=== PATIENT | male | born 1965 | race Caucasian/White ===

== ENCOUNTER 2017-09-03 17:49 | Emergency (ER) | payer BC ==
[2017-09-03] MEDS ORDERED: Lidocaine 1% 20 ML MDV INJECT ONE (19:04)
[2017-09-03] MEDS ORDERED: Bacitracin Oint 1 GM U/D Packet TOP ONE (19:04)
--- NOTE | 2017-09-03 19:06 | EDM.PDOC ---
ED HPI GENERAL MEDICAL PROBLEM - General Chief Complaint: Laceration Stated Complaint: LACERATION LT THUMB/HAND Time Seen by Provider: 09/03/17 19:05 Source of Information: Reports: Patient History Limitations: Reports: No Limitations - History of Present Illness INITIAL COMMENTS - FREE TEXT/NARRATIVE: HISTORY AND PHYSICAL: []51-year-old presenting with laceration to his right thumb History of Present Illness: []Just before presenting to the emergency department patient in changing the blade on his chainsaw and the bar fell hitting him on the lateral portion of his right thumb states that it was quite dirty when he first presented in the house Review of Systems: As per history of present illness and below otherwise all systems reviewed and negative. Past medical history: As per history of present illness and as reviewed below otherwise noncontributory. Surgical history: As per history of present illness and as reviewed below otherwise noncontributory. Social history: No reported history of drug or alcohol abuse. Family history: As per history of present illness and as reviewed below otherwise noncontributory. Physical exam: Alert and oriented male answering questions appropriately in full sentences without any shortness of breath HEENT: Atraumatic, normocehpalic, pupils reactive, negative for conjunctival pallor or scleral icterus, mucous membranes moist, throat clear, neck supple, nontender, trachea midline. Lungs: Clear to auscultation, breath sounds equal bilaterally, chest non tender. Heart: S1S2, regular, negative for clicks, rubs, or JVD. Abdomen: Soft, nondistended, nontender. Negative for masses or hepatossplenmegaly. Negative for costovertebral tenderness. Pelvis: Stable nontender. Genitourinary: Deferred. Rectal: Deferred Extremities: 3 cm laceration to lateral right thumb .traumatic, negative for cords or calf pain. Neurovascular unremarkable. Neuro: Awake, alert, oriented. Cranial nerves II through XII unremarkable. Cerebellum unremarkable. Motor and sensory unremarkable throughout. Exam nonfocal. Diagnostics: [] Therapeutics: []Sutures Impression: [] Laceration with repair Plan: []Discharged to home Sutures out in 10 days Definitive disposition and diagnosis as appropriate pending reevaluation and review of above. Onset: Today, Sudden Duration: Hour(s): Location: Reports: Upper Extremity, Right Severity: Mild Improves with: Reports: None Worsens with: Reports: None Associated Symptoms: Reports: No Other Symptoms - Related Data Allergies Allergy/AdvReac Type Severity Reaction Status Date / Time codeine Allergy Itching Verified 09/03/17 19:07 Home Meds: Home Meds Amoxicillin/Potassium Clav [Augmentin 875-125 Tablet] 1 each PO BID #20 tablet 09/03/17 [Rx] Aspirin [Halfprin] 81 mg PO DAILY 09/03/17 [History] Lisinopril 10 mg PO DAILY 09/03/17 [History] Sertraline HCl 50 mg PO DAILY 09/03/17 [History] Ustekinumab [Stelara] 90 mg INJECT ASDIRECTED 09/03/17 [History] ED ROS GENERAL - Review of Systems Review Of Systems: ROS reveals no pertinent complaints other than HPI. ED EXAM, SKIN/RASH Exam: See Below (see dictation) ED SKIN PROCEDURES - Laceration/Wound Repair Right Lateral Finger Lac/Wound length In cm: 3 Appearance: Subcutaneous, Moderately Contaminated Distal NVT: Neuro & Vascular Intact, No Tendon Injury Anesthetic Type: Digital Local Anesthesia - Lidocaine (Xylocaine): 1% Plain Local Anesthetic Volume: 5cc Skin Prep: Saline Exploration/Debridement/Repair: Wound Explored, Explored to Base, No Foreign Material Found Closed with: Sutures Suture Size: 4-0 # of Sutures: 5 Suture Type: Nylon, Interrupted, Simple Drain Placement: No Sterile Dressing Applied: Nurse Tetanus Status Addressed: Yes Complications: No Course - Vital Signs Last Recorded V/S: Last Vital Signs Temp 36.3 C 09/03/17 19:04 Pulse 88 09/03/17 19:04 Resp 12 09/03/17 19:04 BP 145/102 H 09/03/17 19:04 Pulse Ox 94 L 09/03/17 19:04 - Orders/Labs/Meds Orders: Active Orders 24 hr Category Date Time Status Vaccines to be Administered [RC] PER UNIT ROUTINE Care 09/03/17 19:25 Active Meds: Medications Discontinued Medications Generic Name Dose Route Start Last Admin Trade Name Freq PRN Reason Stop Dose Admin Bacitracin 1 dose 09/03/17 19:04 Bacitracin Oint 1 Gm TOP 09/03/17 19:05 ONETIME ONE Diphtheria/Tetanus/Acell Pertussis 0.5 ml 09/03/17 19:25 Adacel IM 09/03/17 19:26 .ONCE ONE Lidocaine HCl 20 ml 09/03/17 19:04 Xylocaine 1% INJECT 09/03/17 19:05 ONETIME ONE Departure - Departure Time of Disposition: 19:32 Disposition: Home, Self-Care 01 Condition: Good Clinical Impression: Laceration - Discharge Information Prescriptions: Amoxicillin/Potassium Clav [Augmentin 065125 Tablet] 1 each PO BID #20 tablet Instructions: Laceration Care, Adult, [id number], Stitches, [place], or Adhesive Wound Closure, [id number] Referrals: PCP,None [Primary Care Provider] - Forms: ED Department Discharge Additional Instructions: The following information is given to patients seen in the emergency department who are being discharged to home. This information is to outline your options for follow-up care. We provide all patients seen in our emergency department with a follow-up referral. The need for follow-up, as well as the timing and circumstances, are variable depending upon the specifics of your emergency department visit. If you don't have a primary care physician on staff, we will provide you with a referral. We always advise you to contact your personal physician following an emergency department visit to inform them of the circumstance of the visit and for follow-up with them and/or the need for any referrals to a consulting specialist. The emergency department will also refer you to a specialist when appropriate. This referral assures that you have the opportunity for followup care with a specialist. All of these measure are taken in an effort to provide you with optimal care, which includes your followup. Under all circumstances we always encourage you to contact your private physician who remains a resource for coordinating your care. When calling for followup care, please make the office aware that this follow-up is from your recent emergency room visit. If for any reason you are refused follow-up, please contact the [facility] emergency department at and asked to speak to the emergency department charge nurse. Sutures out in 10 days Antibiotics have been sent to [facility] - My Orders Last 24 Hours: My Active Orders 09/03/17 19:25 Vaccines to be Administered [RC] PER UNIT ROUTINE - Assessment/Plan Last 24 Hours: My Active Orders 09/03/17 19:25 Vaccines to be Administered [RC] PER UNIT ROUTINE
[2017-09-03] MEDS ORDERED: Diphtheria,Pertussis(Acell),Tetanus Vaccine 0.5 ML Syringe IM ONE (19:25)
== END 2017-09-03 19:54 | disposition home or self-care (01) ==
LOC: MW.ED 17:49
DX: S61.011A Laceration without foreign body of right thumb without damage to nail, initial encounter (principal); W26.8XXA Contact with other sharp object(s), not elsewhere classified, initial encounter; Z23 Encounter for immunization; Z79.82 Long term (current) use of aspirin; Z79.899 Other long term (current) drug therapy; Z88.5 Allergy status to narcotic agent
CPT/HCPCS: 90471; 90715; 99283-25

== ENCOUNTER 2018-06-02 17:34 | Emergency (ER) | payer SELFPAY ==
--- NOTE | 2018-06-02 17:50 | EDM.PDOC ---
ED HPI GENERAL MEDICAL PROBLEM - General Chief Complaint: Head Injury Stated Complaint: SLIPPED ON ICE Time Seen by Provider: 06/02/18 17:45 Source of Information: Reports: Patient History Limitations: Reports: No Limitations - History of Present Illness INITIAL COMMENTS - FREE TEXT/NARRATIVE: History of present illness: []Patient was standing on 8 inch ledge at work outside when he lost his footing and fell backwards hitting his head on the ice approximately 4:30 this afternoon. He had a hard hat on but it fell off and he didn't lose consciousness. Review of systems: As per history of present illness and below otherwise all systems reviewed and negative. Past medical history: As per history of present illness and as reviewed below otherwise noncontributory. Surgical history: As per history of present illness and as reviewed below otherwise noncontributory. Social history: No reported history of drug or alcohol abuse. Family history: As per history of present illness and as reviewed below otherwise noncontributory. Physical exam: General: Well developed, well nourished in NAD HEENT: Atraumatic, normocephalic, pupils reactive, negative for conjunctival pallor or scleral icterus, mucous membranes moist, throat clear, neck supple, nontender, trachea midline. Lungs: Clear to auscultation, breath sounds equal bilaterally, chest nontender. Heart: S1S2, regular, negative for clicks, rubs, or JVD. Abdomen: NABS, Soft, nondistended, nontender. Negative for masses or hepatosplenomegaly. Negative for costovertebral tenderness. Pelvis: Stable nontender. Genitourinary: Deferred. Rectal: Deferred. Extremities: Atraumatic, negative for cords or calf pain. Neurovascular unremarkable. Neuro: Awake, alert, oriented. Cranial nerves II through XII unremarkable. Cerebellum unremarkable. Motor and sensory unremarkable throughout. Exam nonfocal. Skin:warm and dry Diagnostics: CT head-negative, CTcervical spine-negative. Therapeutics: tramadol, zofran ED Course: unremarkable Impression: Fall , head contusion, cervical strain Prescriptions: Patient declined any prescriptions Plan: follow up with your primary care physician, return to ER if symptoms worsen or change. Definitive disposition and diagnosis as appropriate pending reevaluation and review of above. head Pain Score (Numeric/FACES): 4 - Related Data Allergies Allergy/AdvReac Type Severity Reaction Status Date / Time codeine Allergy Itching Verified 09/03/17 19:07 Home Meds: Home Meds Amoxicillin/Potassium Clav [Augmentin 875-125 Tablet] 1 each PO BID #20 tablet 09/03/17 [Rx] Aspirin [Halfprin] 81 mg PO DAILY 09/03/17 [History] Lisinopril 10 mg PO DAILY 09/03/17 [History] Sertraline HCl 50 mg PO DAILY 09/03/17 [History] Ustekinumab [Stelara] 90 mg INJECT ASDIRECTED 09/03/17 [History] Past Medical History Cardiovascular History: Reports: Hypertension Dermatologic History: Reports: Other (See Below) Other Dermatologic History: psoriasis - Infectious Disease History Infectious Disease History: Reports: Chicken Pox Social & Family History - Caffeine Use Caffeine Use: Reports: Coffee ED ROS GENERAL - Review of Systems Review Of Systems: ROS reveals no pertinent complaints other than HPI. ED EXAM, HEAD INJURY - Physical Exam Exam: See Below (History of present illness) Course - Vital Signs Last Recorded V/S: Last Vital Signs Temp Pulse 76 06/02/18 17:40 Resp 18 06/02/18 17:40 BP 136/74 06/02/18 17:40 Pulse Ox 95 06/02/18 17:40 - Orders/Labs/Meds Meds: Medications Discontinued Medications Generic Name Dose Route Start Last Admin Trade Name Valentinoq PRN Reason Stop Dose Admin Ondansetron HCl 4 mg 06/02/18 19:04 Zofran Odt PO 06/02/18 19:05 ONETIME ONE Tramadol HCl 50 mg 06/02/18 19:04 Ultram PO 06/02/18 19:05 ONETIME ONE Departure - Departure Time of Disposition: 19:22 Disposition: Home, Self-Care 01 Condition: Good Clinical Impression: Fall Qualifiers: Encounter type: initial encounter Qualified Code(s): W19.XXXA - Unspecified fall, initial encounter Head contusion Qualifiers: Encounter type: initial encounter Contusion of head detail: unspecified part of head Qualified Code(s): S00.93XA - Contusion of unspecified part of head, initial encounter Cervical strain Qualifiers: Encounter type: initial encounter Qualified Code(s): S16.1XXA - Strain of muscle, fascia and tendon at neck level, initial encounter - Discharge Information *PRESCRIPTION DRUG MONITORING PROGRAM REVIEWED*: No *COPY OF PRESCRIPTION DRUG MONITORING REPORT IN PATIENT KATARINA: No Referrals: PCP,Unknown [Primary Care Provider] - Forms: ED Department Discharge Additional Instructions: The following information is given to patients seen in the emergency department who are being discharged to home. This information is to outline your options for follow-up care. We provide all patients seen in our emergency department with a follow-up referral. The need for follow-up, as well as the timing and circumstances, are variable depending upon the specifics of your emergency department visit. If you don't have a primary care physician on staff, we will provide you with a referral. We always advise you to contact your personal physician following an emergency department visit to inform them of the circumstance of the visit and for follow-up with them and/or the need for any referrals to a consulting specialist. The emergency department will also refer you to a specialist when appropriate. This referral assures that you have the opportunity for follow-up care with a specialist. All of these measure are taken in an effort to provide you with optimal care, which includes your follow-up. Under all circumstances we always encourage you to contact your private physician who remains a resource for coordinating your care. When calling for follow-up care, please make the office aware that this follow-up is from your recent emergency room visit. If for any reason you are refused follow-up, please contact the [facility] Emergency Department at and asked to speak to the emergency department charge nurse. [facility] [address] [place] [phone]
--- NOTE | 2018-06-02 18:57 | CT ---
INDICATION: Syncope TECHNIQUE: CT cervical spine without contrast. COMPARISON: None FINDINGS: Vertebrae: Alignment is normal. There are no fractures or suspicious bony lesions. Discs and facet joints: Posterior osteophytes at C4-5, greater on the right with moderate right and mild left foraminal stenosis. Facet hypertrophy with posterior osteophytes at C5-6 with moderate bilateral foraminal stenosis. Extraspinal findings: Prevertebral soft tissues, visualized airway, and visualized lungs are unremarkable. IMPRESSION: Mild degenerative disc disease without evidence of cervical spine fracture. Please note that all CT scans at this facility use dose modulation, iterative reconstruction, and/or weight-based dosing when appropriate to reduce radiation dose to as low as reasonably achievable. Dictated by Koko Chan MD @ Jun 02 2018 6:53PM Signed by Dr. Koko Chan @ Jun 02 2018 6:56PM
[2018-06-02] MEDS ORDERED: traMADol 50 MG Tab PO ONE (19:04)
[2018-06-02] MEDS ORDERED: Ondansetron 4 MG Tab.DIS PO ONE (19:04)
--- NOTE | 2018-06-02 19:12 | CT ---
INDICATION: Syncope TECHNIQUE: CT head without contrast. COMPARISON: None. FINDINGS: CSF spaces: Within normal limits for age. Brain parenchyma: The lowe-white differentiation is normal. No sign of mass, hemorrhage, or midline shift. Skull base and calvarium: The visualized paranasal sinuses and mastoid air cells demonstrate no acute or significant findings. The visualized orbits are grossly unremarkable. No skull fractures. IMPRESSION: Unremarkable noncontrast head CT. Please note that all CT scans at this facility use dose modulation, iterative reconstruction, and/or weight-based dosing when appropriate to reduce radiation dose to as low as reasonably achievable. Dictated by Koko Chan MD @ Jun 02 2018 7:06PM Signed by Dr. Koko Chan @ Jun 02 2018 7:11PM
== END 2018-06-02 19:27 | disposition home or self-care (01) ==
LOC: MW.ED 17:34
DX: S16.1XXA Strain of muscle, fascia and tendon at neck level, initial encounter (principal); S00.93XA Contusion of unspecified part of head, initial encounter; I10 Essential (primary) hypertension; Z88.5 Allergy status to narcotic agent; Z79.82 Long term (current) use of aspirin; Z79.899 Other long term (current) drug therapy; W17.89XA Other fall from one level to another, initial encounter; Y99.0 Civilian activity done for income or pay; F17.290 Nicotine dependence, other tobacco product, uncomplicated
CPT/HCPCS: 70450; 72125; 99284; A9270

== ENCOUNTER 2019-01-05 09:17 | Day surgery (SDC) | payer BC ==
[~2019-01-05 09:17] MED LIST: Lactated Ringers 1,000 ML IV SCH; Lidocaine 2% 5 ML SDV ONE; Propofol 200 MG/20 ML SDV ONE; Sodium Chloride 0.9% 10 ML SDV IV PRN; Sodium Chloride 0.9% 10 ML Syringe FLUSH PRN; Sodium Chloride 0.9% 2.5 ML Syringe FLUSH PRN; fentaNYL 100 MCG/2 ML SDV ONE
--- NOTE | 2019-01-05 10:20 | PCM.PREANE ---
Preanesthetic Assessment - Anesthesia/Transfusion/Family Hx Anesthesia History: Prior Anesthesia Without Reaction Family History of Anesthesia Reaction: No Transfusion History: No Prior Transfusion(s) - Review of Systems General: No Symptoms Pulmonary: No Symptoms Cardiovascular: No Symptoms Gastrointestinal: No Symptoms, Nausea Other: Reports: None - Physical Assessment Vital Signs: Last Vital Signs Temp 97.9 F 01/05/19 09:54 Pulse 70 01/05/19 09:54 Resp 16 01/05/19 09:54 BP 141/96 H 01/05/19 09:54 Pulse Ox 95 01/05/19 09:54 Height: 5 ft 11 in Weight: 119.295 kg ASA Class: 2 Mental Status: Alert & Oriented x3 Airway Class: Mallampati = 2 Dentition: Reports: Normal Dentition ROM/Head Extension: Full Lungs: Clear to Auscultation, Normal Respiratory Effort Cardiovascular: Regular Rate, Regular Rhythm - Allergies Allergies/Adverse Reactions: Allergies Allergy/AdvReac Type Severity Reaction Status Date / Time amoxicillin Allergy Hives Verified 01/02/19 09:20 codeine Allergy Itching Verified 01/02/19 09:20 - Blood Blood Available: No - Anesthesia Plan Pre-Op Medication Ordered: None - Acknowledgements Anesthesia Type Planned: General Anesthesia Pt an Appropriate Candidate for the Planned Anesthesia: Yes Alternatives and Risks of Anesthesia Discussed w Pt/Guardian: Yes Pt/Guardian Understands and Agrees with Anesthesia Plan: Yes Additional Comments: PMH: htn, sb- on cpcp PLAN: tiva PreAnesthesia Questionnaire HEENT History: Reports: Other (See Below) Other HEENT History: wears glasses Cardiovascular History: Reports: Hypertension Respiratory History: Reports: Sleep Apnea Other Respiratory History: uses CPAP Gastrointestinal History: Reports: GERD Genitourinary History: Reports: None Musculoskeletal History: Reports: Arthritis, Fracture, Gout Other Musculoskeletal History: hx fx hand and arm Neurological History: Reports: Concussion Psychiatric History: Reports: Anxiety, Depression Endocrine/Metabolic History: Reports: Obesity/BMI 30+ Hematologic History: Reports: None Immunologic History: Reports: None Oncologic (Cancer) History: Reports: None Dermatologic History: Reports: Psoriasis, Other (See Below) Other Dermatologic History: psoriasis - Infectious Disease History Infectious Disease History: Reports: Chicken Pox - Past Surgical History Head Surgeries/Procedures: Reports: None HEENT Surgical History: Reports: None Cardiovascular Surgical History: Reports: None Respiratory Surgical History: Reports: None GI Surgical History: Reports: Cholecystectomy Male Surgical History: Reports: None Endocrine Surgical History: Reports: None Neurological Surgical History: Reports: Lumbar Spine Other Neurological Surgeries/Procedures: hx back surgery Musculoskeletal Surgical History: Reports: Other (See Below) Other Musculoskeletal Surgeries/Procedures:: left hand surgery Oncologic Surgical History: Reports: None Dermatological Surgical History: Reports: None - SUBSTANCE USE Tobacco Use Within Last Twelve Months: Smokeless Tobacco Recreational Drug Use History: No - HOME MEDS Home Medications: Home Meds Aspirin [Halfprin] 81 mg PO DAILY 09/03/17 [History] Lisinopril 20 mg PO DAILY 09/03/17 [History] Sertraline HCl 50 mg PO DAILY 09/03/17 [History] Ustekinumab [Stelara] 90 mg INJECT ASDIRECTED 09/03/17 [History] Clobetasol [Clobetasol Propionate 0.05% Cream] 1 applic TOP ASDIRECTED PRN 01/02 [History] Fish Oil/[place]-3 Fatty Acids [Fish Oil 1,000 MG] 1,000 mg PO DAILY 01/02/19 [ History] Hydrocortisone [Hydrocortisone 2.5% Crm] 1 applic TOP ASDIRECTED PRN 01/02/19 [ History] hydroCHLOROthiazide [Hydrochlorothiazide] 25 mg PO DAILY 01/02/19 [History] Omeprazole Magnesium [Prilosec Otc] 20 mg PO DAILY 01/03/19 [History] - CURRENT (IN HOUSE) MEDS Current Meds: Current Medications Lactated Ringer's (Ringers, Lactated) 1,000 mls @ 125 mls/hr IV ASDIRECTED [facility] Last Admin: 01/05/19 10:02 Dose: 125 mls/hr Sodium Chloride (Saline Flush) 10 ml FLUSH ASDIRECTED PRN PRN Reason: Keep Vein Open Sodium Chloride (Saline Flush) 2.5 ml FLUSH ASDIRECTED PRN PRN Reason: Keep Vein Open Sodium Chloride (Saline Flush) 10 ml FLUSH ASDIRECTED PRN PRN Reason: Keep Vein Open Sodium Chloride (Saline Flush) 2.5 ml FLUSH ASDIRECTED PRN PRN Reason: Keep Vein Open Sodium Chloride (Normal Saline) 10 ml IV ASDIRECTED PRN PRN Reason: IV Use Discontinued Medications Fentanyl (Sublimaze) Confirm Administered Dose 100 mcg .ROUTE .STK-MED ONE Stop: 01/05/19 08:36 Lidocaine (Xylocaine-Mpf 2%) Confirm Administered Dose 5 ml .ROUTE .STK-MED ONE Stop: 01/05/19 08:35 Propofol (Diprivan 20 Ml) Confirm Administered Dose 400 mg .ROUTE .STK-MED ONE Stop: 01/05/19 08:35
[2019-01-05] MEDS ORDERED: Propofol 200 MG/20 ML SDV ONE (11:22)
--- NOTE | 2019-01-05 12:08 | PCM.POSTAN ---
POST ANESTHESIA ASSESSMENT - MENTAL STATUS Mental Status: Alert, Oriented - VITAL SIGNS Vital Signs: Last Vital Signs Temp 97.9 F 01/05/19 09:54 Pulse 62 01/05/19 12:05 Resp 18 01/05/19 12:05 BP 135/88 01/05/19 12:05 Pulse Ox 94 L 01/05/19 12:05 - RESPIRATORY Respiratory Status: Respiratory Rate WNL, Airway Patent, O2 Saturation Stable - CARDIOVASCULAR CV Status: Pulse Rate WNL, Blood Pressure Stable - GASTROINTESTINAL GI Status: No Symptoms - POST OP HYDRATION Hydration Status: Adequate & Stable
--- NOTE | 2019-01-05 12:09 | PCM48HPAN ---
Post Anesthesia Note - EVALUATION WITHIN 48HRS OF ANESTHETIC Vital Signs in Normal Range: Yes Patient Participated in Evaluation: Yes Respiratory Function Stable: Yes Airway Patent: Yes Cardiovascular Function Stable: Yes Hydration Status Stable: Yes Pain Control Satisfactory: Yes Nausea and Vomiting Control Satisfactory: Yes Mental Status Recovered: Yes Vital Signs: Last Vital Signs Temp 97.9 F 01/05/19 09:54 Pulse 62 01/05/19 12:05 Resp 18 01/05/19 12:05 BP 135/88 01/05/19 12:05 Pulse Ox 94 L 01/05/19 12:05
--- NOTE | 2019-01-05 12:31 | PCM.OPNOTE ---
- General Post-Op/Procedure Note Date of Surgery/Procedure: 01/05/19 Operative Procedure(s): Screening colonoscopy Findings: hepatic flexure, descending, sigmoid colon polyp Pre Op Diagnosis: Screening colonoscopy Post-Op Diagnosis: Hepatic flexure, descending, sigmoid colon polyp [place]est[place] [facility] [place]geon: Caryl Figueroa Condition: Good Free Text/Narrative:: Intake & Output 01/04/19 01/05/19 01/05/19 22:59 06:59 14:59 Intake Total 550 Balance 550
--- NOTE | 2019-01-05 14:28 | OR ---
SURGEON: CARYL FIGUEROA MD DATE OF PROCEDURE: 01/05/2019 PREOPERATIVE DIAGNOSIS: Screening colonoscopy. POSTOPERATIVE DIAGNOSES: 1. Hepatic flexure polyp. 2. Descending colon polyp. 3. Sigmoid colon polyp. PROCEDURE PERFORMED: Screening colonoscopy. PRIMARY SURGEON: Caryl Figueroa MD. ANESTHESIA: MAC. INSTRUMENT USED: Olympus colonoscope. EXTENT OF EXAM: To the cecum. PREPARATION: Good. LIMITATIONS: None. INDICATION FOR EXAMINATION: The patient is a 53-year-old male who presents for screening colonoscopy. I explained the procedure; expected perioperative course; and risks including bleeding, infection, or damage to surrounding structures including perforation. The patient verbalized understanding and wishes to proceed. PROCEDURE IN DETAIL: The patient was brought into the endoscopy suite and placed in a left lateral decubitus position. A time-out was completed verifying the patient's name, age, date of , allergies, and procedure to be performed. Monitored anesthesia care was induced and continuous oxygen was provided via nasal cannula throughout the procedure. After adequate sedation was achieved, a digital rectal exam was performed. This exam was within normal limits. A well-lubricated colonoscope was inserted in the rectum and advanced under direct visualization to the level of the cecum. The cecum was identified by both visual and anatomic landmarks. A photograph was taken of the cecal cap as well as with the scope retroflexed within the cecum. The scope was then straightened out and fully withdrawn while examining the color, texture, anatomy, and integrity of the mucosa from the cecum to the anal canal. The patient was found to have a sessile polyp at the hepatic flexure. I attempted to remove this using a looped snare, however, given its location, I was unable to do so. It was removed in piecemeal fashion using cold biopsy forceps. It was sent to pathology, labeled as hepatic flexure polyp. The patient had 2 other sessile polyps, one in the descending colon and one in the sigmoid colon. These were both removed using cold biopsy forceps. The scope was then brought into the rectum and retroflexed to allow visualization of the anal canal opening. This appeared normal and a photograph was taken. Scope was then straightened out and fully withdrawn. Cecum to anus time was 30 minutes. The patient tolerated the procedure well and was transferred to the PACU in stable condition. ENDOSCOPIC DIAGNOSES: 1. Hepatic flexure polyp. 2. Descending colon polyp. 3. Sigmoid colon polyp. RECOMMENDATIONS: Follow up in clinic in 2 weeks. LEATHA LOPES /[id number]
== END 2019-01-05 12:28 | disposition home or self-care (01) ==
LOC: MW.SDS 09:17
PROVIDERS: ATTEND Surgery
DX: Z12.11 Encounter for screening for malignant neoplasm of colon (principal); D12.5 Benign neoplasm of sigmoid colon; K63.5 Polyp of colon; K21.9 Gastro-esophageal reflux disease without esophagitis; I10 Essential (primary) hypertension; E66.9 Obesity, unspecified; F41.9 Anxiety disorder, unspecified; F17.220 Nicotine dependence, chewing tobacco, uncomplicated; G47.33 Obstructive sleep apnea (adult) (pediatric); M19.90 Unspecified osteoarthritis, unspecified site; M10.9 Gout, unspecified; Z88.0 Allergy status to penicillin; Z88.5 Allergy status to narcotic agent; Z68.36 Body mass index [BMI] 36.0-36.9, adult; Z99.89 Dependence on other enabling machines and devices; Z79.82 Long term (current) use of aspirin; Z79.899 Other long term (current) drug therapy
CPT/HCPCS: 45380; J2001; J2704; J3010; J7120

== ENCOUNTER 2019-03-18 13:32 | Emergency (ER) | payer BC ==
[2019-03-18] MEDS ORDERED: Sodium Chloride 0.9% 1,000 ML IV ONE (13:33)
[2019-03-18] MEDS ORDERED: Ondansetron 4 MG/2 ML SDV IVPUSH ONE (13:33)
[2019-03-18] MEDS ORDERED: Morphine 4 MG/ML Syringe IVPUSH ONE ×2 (13:52→15:42)
--- NOTE | 2019-03-18 13:56 | EDM.PDOC ---
ED HPI GENERAL MEDICAL PROBLEM - General Chief Complaint: Trauma Stated Complaint: FELL Time Seen by Provider: 03/18/19 13:35 Source of Information: Reports: Patient History Limitations: Reports: No Limitations - History of Present Illness INITIAL COMMENTS - FREE TEXT/NARRATIVE: HISTORY AND PHYSICAL: History of present illness: Patient is a 53-year-old male who presents to the emergency room today with complaints of pain after falling. Patient states he was walking down his porch steps when he slipped and fell backwards hitting his left back and elbow. He denies hitting his head or having any loss of consciousness. He is complaining of thoracic back, left flank, left abdominal and left elbow pain. Abrasion noted to left elbow. Patient was brought in by ambulance and had been placed on a backboard. Patient states he does take aspirin 81 mg a few times per week, has not had this medication in 24 hours. Trauma alert was called due to aspirin usage and fall. Review of systems: As per history of present illness and below otherwise all systems reviewed and negative. Past medical history: As per history of present illness and as reviewed below otherwise noncontributory. Surgical history: As per history of present illness and as reviewed below otherwise noncontributory. Social history: See social history for further information Family history: As per history of present illness and as reviewed below otherwise noncontributory. Physical exam: General: Well-developed and well-nourished 53-year-old male. Alert and oriented. Nontoxic appearing and in no acute distress. HEENT: Atraumatic, normocephalic, pupils equal and reactive bilaterally, negative for conjunctival pallor or scleral icterus, mucous membranes moist, TMs normal bilaterally, throat clear, neck supple, nontender, trachea midline. No drooling or trismus noted. No meningeal signs. No hot potato voice noted. Lungs: Clear to auscultation, breath sounds equal bilaterally, chest nontender. Heart: S1S2, regular rate and rhythm without overt murmur Abdomen: Soft, obese, generalized tenderness to the upper abdomen. Negative for masses. Negative for costovertebral tenderness. Pelvis: Stable nontender. C-spine/Back: No pinpoint vertebral tenderness upon palpation. No crepitus, step -offs or obvious deformities. Paraspinous muscular tenderness to the left thoracic region extending into left flank. Patient was ambulatory on scene. Able to lift his toes up towards his nose and pushed down with equal force bilaterally. Denies any urinary or fecal incontinence. Denies any numbness, tingling or saddle paresthesia. Skin: Abrasion noted to left elbow. Otherwise skin is intact, warm, dry. No lesions or rashes noted. Extremities: Moves all extremities per self without difficulty or deficits, full ROM of all major joints. Strong radial and pedal pulses bilaterally. He is negative for cords or calf pain. Neurovascular unremarkable. Neuro: Awake, alert, oriented. Cranial nerves II through XII unremarkable. Cerebellum unremarkable. Motor and sensory unremarkable throughout. Exam nonfocal. Notes: Lab work is unremarkable. Imaging is unremarkable with the exception of some soft tissue swelling noted at the left elbow. The abrasion to the left elbow was cleansed and bacitracin applied. All findings were shared with the patient and at bedside. Vital signs remained stable. Supportive care measures were reviewed and discussed. Voices understanding and is agreeable to plan of care. Denies any further questions or concerns at this time. Diagnostics: CBC, CMP, INR, UA, Thoracic CT, Abd/Pelvis CT Therapeutics: IV fluids, Zofran, Morphine Prescription: [place] (#20) Impression: Fall Thoracic Back Pain Abrasion Plan: 1. The medication you received today does cause drowsiness, so do not drive for the remaining day 2. When resting please lay on a flat firm surface. Limit your immobility to prevent muscle stiffness. Get up to ambulate/move around/gentle stretching multiple times throughout the day. May alternate heat and ice to the painful areas 3. Tylenol and/or Ibuprofen as needed for back pain. [place] as prescribed, this medication may cause drowsiness a do not take it will driving her needing to be functioning outside of the house. 4. Please follow-up with your primary care provider as we discussed. Return to the ED as needed and as discussed. Definitive disposition and diagnosis as appropriate pending reevaluation and review of above. left side Pain Score (Numeric/FACES): 9 - Related Data Allergies Allergy/AdvReac Type Severity Reaction Status Date / Time amoxicillin Allergy Hives Verified 01/02/19 09:20 codeine Allergy Itching Verified 01/02/19 09:20 Home Meds: Home Meds Aspirin [Halfprin] 81 mg PO DAILY 09/03/17 [History] Lisinopril 20 mg PO DAILY 09/03/17 [History] Sertraline HCl 50 mg PO DAILY 09/03/17 [History] Ustekinumab [Stelara] 90 mg INJECT ASDIRECTED 09/03/17 [History] Clobetasol [Clobetasol Propionate 0.05% Cream] 1 applic TOP ASDIRECTED PRN 01/02 [History] Fish Oil/[place]-3 Fatty Acids [Fish Oil 1,000 MG] 1,000 mg PO DAILY 01/02/19 [ History] Hydrocortisone [Hydrocortisone 2.5% Crm] 1 applic TOP ASDIRECTED PRN 01/02/19 [ History] hydroCHLOROthiazide [Hydrochlorothiazide] 25 mg PO DAILY 01/02/19 [History] Omeprazole Magnesium [Prilosec Otc] 20 mg PO DAILY 01/03/19 [History] Past Medical History HEENT History: Reports: Other (See Below) Other HEENT History: wears glasses Cardiovascular History: Reports: Hypertension Respiratory History: Reports: Sleep Apnea Other Respiratory History: uses CPAP Gastrointestinal History: Reports: GERD Genitourinary History: Reports: None Musculoskeletal History: Reports: Arthritis, Fracture, Gout Other Musculoskeletal History: hx fx hand and arm Neurological History: Reports: Concussion Psychiatric History: Reports: Anxiety, Depression Endocrine/Metabolic History: Reports: Obesity/BMI 30+ Hematologic History: Reports: None Immunologic History: Reports: None Oncologic (Cancer) History: Reports: None Dermatologic History: Reports: Psoriasis, Other (See Below) Other Dermatologic History: psoriasis - Infectious Disease History Infectious Disease History: Reports: Chicken Pox - Past Surgical History Head Surgeries/Procedures: Reports: None HEENT Surgical History: Reports: None Cardiovascular Surgical History: Reports: None Respiratory Surgical History: Reports: None GI Surgical History: Reports: Cholecystectomy Male Surgical History: Reports: None Endocrine Surgical History: Reports: None Neurological Surgical History: Reports: Lumbar Spine Other Neurological Surgeries/Procedures: hx back surgery Musculoskeletal Surgical History: Reports: Other (See Below) Other Musculoskeletal Surgeries/Procedures:: left hand surgery Oncologic Surgical History: Reports: None Dermatological Surgical History: Reports: None Social & Family History - Family History Family Medical History: Noncontributory - Caffeine Use Caffeine Use: Reports: Coffee Review of Systems - Review of Systems Review Of Systems: Comprehensive ROS is negative, except as noted in HPI. ED EXAM, GENERAL - Physical Exam Exam: See Below (See dictation) Course - Vital Signs Last Recorded V/S: Last Vital Signs Temp 97.1 F 03/18/19 13:32 Pulse 65 03/18/19 13:32 Resp 16 03/18/19 13:32 BP 143/97 H 03/18/19 13:32 Pulse Ox 94 L 03/18/19 13:32 - Orders/Labs/Meds Orders: Active Orders 24 hr Category Date Time Status Admission Status [Patient Status] [ADT] Stat ADT 03/18/19 14:13 Active UA RFX BRITTANY AND CULT IF INDIC [URIN] Stat Lab 03/18/19 13:34 Ordered Sodium Chloride 0.9% [Normal Saline] 1,000 ml Med 03/18/19 13:33 Active IV STAT Medication Orders Sodium Chloride (Normal Saline) 1,000 mls @ 125 mls/hr IV STAT ONE Stop: 03/18/19 21:32 Last Admin: 03/18/19 14:10 Dose: 125 mls/hr Labs: Laboratory Tests 03/18/19 03/18/19 03/18/19 Range/Units 14:04 14:04 14:04 WBC 9.88 (4.0-11.0) K/uL RBC 4.97 (4.50-5.90) M/uL Hgb 13.9 (13.0-17.0) g/dL Hct 41.3 (38.0-50.0) % MCV 83.1 (80.0-98.0) fL MCH 28.0 (27.0-32.0) pg MCHC 33.7 (31.0-37.0) g/dL RDW Std Deviation 41.8 (28.0-62.0) fl RDW Coeff of Chip 14 (11.0-15.0) % Plt Count 320 (150-400) K/uL MPV 9.40 (7.40-12.00) fL Neut % (Auto) 66.0 (48.0-80.0) % Lymph % (Auto) 25.2 (16.0-40.0) % Bullock % (Auto) 8.1 (0.0-15.0) % Eos % (Auto) 0.5 (0.0-7.0) % Baso % (Auto) 0.2 (0.0-1.5) % Neut # (Auto) 6.5 H (1.4-5.7) K/uL Lymph # (Auto) 2.5 H (0.6-2.4) K/uL Bullock # (Auto) 0.8 (0.0-0.8) K/uL Eos # (Auto) 0.1 (0.0-0.7) K/uL Baso # (Auto) 0.0 (0.0-0.1) K/uL Nucleated RBC % 0.0 /100WBC Nucleated RBCs # 0 K/uL INR 0.98 Sodium 142 (136-148) mmol/L Potassium 3.6 (3.5-5.1) mmol/L Chloride 107 (98-107) mmol/L Carbon Dioxide 23.3 (21.0-32.0) mmol/L BUN 20 H (7.0-18.0) mg/dL Creatinine 1.0 (0.8-1.3) mg/dL Est Cr Clr Drug Dosing 92.03 mL/min Estimated GFR (MDRD) > 60.0 ml/min Glucose 96 (74-106) mg/dL Calcium 8.6 (8.5-10.1) mg/dL Total Bilirubin 0.4 (0.2-1.0) mg/dL AST 18 (15-37) IU/L ALT 34 (14-63) IU/L Alkaline Phosphatase 59 (46-116) U/L Total Protein 7.2 (6.4-8.2) g/dL Albumin 3.6 (3.4-5.0) g/dL Globulin 3.6 (2.6-4.0) g/dL Albumin/Globulin Ratio 1.0 (0.9-1.6) Meds: Medications Generic Name Dose Route Start Last Admin Trade Name Freq PRN Reason Stop Dose Admin Sodium Chloride 1,000 mls @ 125 mls/hr 03/18/19 13:33 03/18/19 14:10 Normal Saline IV 03/18/19 21:32 125 mls/hr STAT ONE Administration Discontinued Medications Generic Name Dose Route Start Last Admin Trade Name Freq PRN Reason Stop Dose Admin Bacitracin 1 dose 03/18/19 15:42 Bacitracin Oint 1 Gm TOP 03/18/19 15:43 ONETIME ONE Morphine Sulfate 4 mg 03/18/19 13:52 03/18/19 14:11 Morphine IVPUSH 03/18/19 13:53 4 mg ONETIME ONE Administration Morphine Sulfate 4 mg 03/18/19 15:42 Morphine IVPUSH 03/18/19 15:43 ONETIME ONE Ondansetron HCl 4 mg 03/18/19 13:33 03/18/19 14:10 Zofran IVPUSH 03/18/19 13:34 4 mg ONETIME ONE Administration Departure - Departure Time of Disposition: 15:49 Disposition: Home, Self-Care 01 Clinical Impression: Abrasion Fall Qualifiers: Encounter type: initial encounter Qualified Code(s): W19.XXXA - Unspecified fall, initial encounter Acute thoracic back pain Qualifiers: Back pain laterality: bilateral Qualified Code(s): M54.6 - Pain in thoracic spine - Discharge Information Referrals: PCP,Unknown [Primary Care Provider] - Forms: ED Department Discharge Additional Instructions: The following information is given to patients seen in the emergency department who are being discharged to home. This information is to outline your options for follow-up care. We provide all patients seen in our emergency department with a follow-up referral. The need for follow-up, as well as the timing and circumstances, are variable depending upon the specifics of your emergency department visit. If you don't have a primary care physician on staff, we will provide you with a referral. We always advise you to contact your personal physician following an emergency department visit to inform them of the circumstance of the visit and for follow-up with them and/or the need for any referrals to a consulting specialist. The emergency department will also refer you to a specialist when appropriate. This referral assures that you have the opportunity for follow-up care with a specialist. All of these measure are taken in an effort to provide you with optimal care, which includes your follow-up. Under all circumstances we always encourage you to contact your private physician who remains a resource for coordinating your care. When calling for follow-up care, please make the office aware that this follow-up is from your recent emergency room visit. If for any reason you are refused follow-up, please contact the Emergency Department at and asked to speak to the emergency department charge nurse. [facility] [address] [place] [address] [facility] [address] [place] [address] 1. The medication you received today does cause drowsiness, so do not drive for the remaining day 2. When resting please lay on a flat firm surface. Limit your immobility to prevent muscle stiffness. Get up to ambulate/move around/gentle stretching multiple times throughout the day. May alternate heat and ice to the painful areas 3. Tylenol and/or Ibuprofen as needed for back pain. [place] as prescribed, this medication may cause drowsiness a do not take it will driving her needing to be functioning outside of the house. 4. Please follow-up with your primary care provider as we discussed. Return to the ED as needed and as discussed. - My Orders Last 24 Hours: My Active Orders 03/18/19 13:33 Sodium Chloride 0.9% [Normal Saline] 1,000 ml IV STAT 03/18/19 13:34 UA RFX BRITTANY AND CULT IF INDIC [URIN] Stat 03/18/19 14:13 Admission Status [Patient Status] [ADT] Stat - Assessment/Plan Last 24 Hours: My Active Orders 03/18/19 13:33 Sodium Chloride 0.9% [Normal Saline] 1,000 ml IV STAT 03/18/19 13:34 UA RFX BRITTANY AND CULT IF INDIC [URIN] Stat 03/18/19 14:13 Admission Status [Patient Status] [ADT] Stat
[2019-03-18 14:48] LABS: BLOOD UREA NITROGEN,BUN 20 mg/dL (7.0-18.0); CARBON DIOXIDE,CO2 23.3 mmol/L (21.0-32.0); CHLORIDE,CL 107 mmol/L (98-107); GLUCOSE RANDOM 96 mg/dL (74-106); POTASSIUM,K 3.6 mmol/L (3.5-5.1); SODIUM,NA 142 mmol/L (136-148)
--- NOTE | 2019-03-18 15:24 | CR ---
Fall. Views of the left elbow. Findings: : Normal alignment. No acute fractures seen. Posterior soft tissue swelling. No definite effusion however the lateral view is suboptimal. Dictated by Masha Obrien MD @ Mar 18 2019 3:21PM Signed by Dr. Masha Obrien @ Mar 18 2019 3:22PM
--- NOTE | 2019-03-18 15:28 | CT ---
HISTORY: Fall. Back pain. COMPARISON: None. TECHNIQUE: Noncontrast axial images were obtained through the cervical spine with sagittal and coronal reconstructions. FINDINGS: Mild degenerative disc changes throughout the thoracic spine. No evidence for acute fracture or dislocation. Dependent ground-glass opacities likely related to atelectasis. Cholecystectomy. IMPRESSION: No acute fracture or dislocation. Please note that all CT scans at this facility use dose modulation, iterative reconstruction, and/or weight-based dosing when appropriate to reduce radiation dose to as low as reasonably achievable. Dictated by Roxanna Carroll MD @ Mar 18 2019 3:21PM Signed by Dr. Roxanna Carroll @ Mar 18 2019 3:25PM
--- NOTE | 2019-03-18 15:30 | CT ---
HISTORY: Fall. COMPARISON: None. TECHNIQUE: Axial images were obtained through the abdomen and pelvis following 100 cc of Isovue 370 intravenous contrast Finding : Mild bibasilar dependent opacities likely atelectasis. Cholecystectomy. The liver, spleen, pancreas, adrenal glands and kidneys are within normal. The bowel is normal in caliber. The appendix is normal. No evidence for bowel obstruction. No lymphadenopathy or ascites. No acute fracture. IMPRESSION: No acute abnormality. Please note that all CT scans at this facility use dose modulation, iterative reconstruction, and/or weight-based dosing when appropriate to reduce radiation dose to as low as reasonably achievable. Dictated by Roxanna Carroll MD @ Mar 18 2019 3:22PM Signed by Dr. Roxanna Carroll @ Mar 18 2019 3:29PM
--- NOTE | 2019-03-18 15:33 | CT ---
HISTORY: Fall. COMPARISON: None. TECHNIQUE: Axial images were obtained through the chest following intravenous contrast. FINDINGS: Mild dependent opacities are likely due to atelectasis. No thoracic lymphadenopathy. No pleural or pericardial effusion. No acute fracture. Cholecystectomy. Impression : No acute abnormality. Please note that all CT scans at this facility use dose modulation, iterative reconstruction, and/or weight-based dosing when appropriate to reduce radiation dose to as low as reasonably achievable. Dictated by Roxanna Carroll MD @ Mar 18 2019 3:29PM Signed by Dr. Roxanna Carroll @ Mar 18 2019 3:32PM
[2019-03-18] MEDS ORDERED: Bacitracin Oint 1 GM U/D Packet TOP ONE (15:42)
[2019-03-18] MEDS ORDERED: Iopamidol 755 MG/ML 500 ML Multipack Bottle IVPUSH STA (17:44)
== END 2019-03-18 17:20 | disposition home or self-care (01) ==
LOC: MW.ED 13:32
DX: S50.312A Abrasion of left elbow, initial encounter (principal); M54.6 Pain in thoracic spine; I10 Essential (primary) hypertension; E66.9 Obesity, unspecified; K21.9 Gastro-esophageal reflux disease without esophagitis; F32.9 Major depressive disorder, single episode, unspecified; F41.9 Anxiety disorder, unspecified; L40.9 Psoriasis, unspecified; Z68.34 Body mass index [BMI] 34.0-34.9, adult; Z79.82 Long term (current) use of aspirin; Z79.899 Other long term (current) drug therapy; Z88.5 Allergy status to narcotic agent; Z88.0 Allergy status to penicillin; W10.9XXA Fall (on) (from) unspecified stairs and steps, initial encounter; Y93.01 Activity, walking, marching and hiking; Y92.008 Other place in unspecified non-institutional (private) residence as the place of occurrence of the external cause
CPT/HCPCS: 36415; 71260; 73080; 74177; 80053; 85025; 85610; 96361; 96374; 96375; 96376; 99284; J2270; J2405; J7030; Q9967; 72128-26

== ENCOUNTER 2023-07-22 20:05 | Emergency (ER) | payer BC ==
[2023-07-22] MEDS: Aspirin 81 MG Tab.Chew PO ONE (20:18)
[2023-07-22] MEDS: Nitroglycerin 0.4 MG Tab.SL SL PRN (20:19)
[2023-07-22 20:22] LABS: BASOPHILS ABSOLUTE AUTO 0.03 K/uL (0.00-0.20); BASOPHILS PERCENT AUTO 0.4 % (0.0-1.0); EOSINOPHILS PERCENT AUTO 1.2 % (0.0-6.0); HEMATOCRIT 43.5 % (42.0-52.0); IMMATURE GRAN ABSOLUTE AUTO 0.02 K/uL (0.00-0.05); IMMATURE GRAN PERCENT AUTO 0.2 % (0.0-0.4); LYMPHOCYTES ABSOLUTE AUTO 3.45 K/uL (1.00-4.80); LYMPHOCYTES PERCENT AUTO 41.5 % (24.0-44.0); MEAN CORPUSCULAR HEMOGLOBIN 28.6 pg (28.0-32.0); MEAN CORPUSCULAR HGB CONC 34.5 g/dL (32.0-36.0); MEAN CORPUSCULAR VOLUME 82.9 fL (83.0-99.0); MEAN PLATELET VOLUME 9.2 fL (9.4-12.4); MONOCYTES ABSOLUTE AUTO 0.61 K/uL (0.00-0.80); MONOCYTES PERCENT AUTO 7.3 % (0.0-8.0); NEUTROPHILS ABSOLUTE AUTO 4.11 K/uL (1.80-7.70); NEUTROPHILS PERCENT AUTO 49.4 % (41.0-71.0); PLATELET COUNT,PLT 357 K/uL (150-400); RED BLOOD CELL COUNT 5.25 M/uL (4.52-5.90); WHITE BLOOD CELL COUNT,WBC 8.32 K/uL (3.9-11.3)
[2023-07-22 20:40] LABS: INR 1.01 (0.86-1.11); PTT,PARTIAL THROMBOPLSTIN TIME 31.6 SEC (23.9-30.7)
[2023-07-22 21:38] LABS: A/G RATIO 0.9 (0.9-1.6); ALANINE AMINOTRANSFERASE,ALT 28 IU/L (14-63); ALBUMIN 3.8 g/dL (3.4-5.0); ALKALINE PHOSPHATASE 86 U/L (46-116); ASPARTATE AMNIOTRANSFERASE,AST 17 IU/L (15-37); BILIRUBIN TOTAL 0.3 mg/dL (0.2-1.0); BLOOD UREA NITROGEN,BUN 18 mg/dL (7.0-18.0); CALCIUM 9.4 mg/dL (8.5-10.1); CARBON DIOXIDE,CO2 21.4 mmol/L (21.0-32.0); CHLORIDE,CL 105 mmol/L (98-107); CREATININE 1.1 mg/dL (0.8-1.3); ESTIMATED GFR 79 mL/min (>60); GLUCOSE RANDOM 147 mg/dL (74-106); MAGNESIUM 1.9 mg/dL (1.8-2.4); POTASSIUM,K 3.6 mmol/L (3.5-5.1); PROTEIN TOTAL,TP 7.8 g/dL (6.4-8.2); SODIUM,NA 138 mmol/L (136-148)
== END 2023-07-22 23:14 | disposition home or self-care (01) ==
LOC: MW.ED 20:05
DX: R07.9 Chest pain, unspecified (principal); I10 Essential (primary) hypertension; Z88.5 Allergy status to narcotic agent; Z88.0 Allergy status to penicillin; Z86.19 Personal history of other infectious and parasitic diseases; Z75.8 Other problems related to medical facilities and other health care
CPT/HCPCS: 36415; 71045; 80053; 83735; 84484; 85025; 85610; 85730; 99285; A9270; 93005; 93010; 99283

== ENCOUNTER 2024-02-17 11:46 | Day surgery (SDC) | payer BC ==
[~2024-02-17 11:46] MED LIST changes: -Lactated Ringers 1,000 ML IV SCH; -Lidocaine 2% 5 ML SDV ONE; -Propofol 200 MG/20 ML SDV ONE; -Sodium Chloride 0.9% 10 ML SDV IV PRN; +Sodium Chloride 0.9% 20 ML SDV IV PRN; -fentaNYL 100 MCG/2 ML SDV ONE
[2024-02-17] MEDS: Lactated Ringers 1,000 ML IV SCH (13:24)
[2024-02-17] MEDS ORDERED: Ketamine HCL/NACL, ISO-OSM 50 MG/5 ML Syringe ONE (14:06)
[2024-02-17] MEDS ORDERED: fentaNYL 100 MCG/2 ML SDV ONE (14:22)
[2024-02-17] MEDS ORDERED: propofoL 50 ML ONE ×2 (14:37)
[2024-02-17] MEDS ORDERED: Ketorolac 30 MG/ML SDV ONE (15:07)
== END 2024-02-17 15:45 | disposition home or self-care (01) ==
LOC: MW.SDS 11:46
PROVIDERS: ATTEND Surgery
DX: Z12.11 Encounter for screening for malignant neoplasm of colon (principal); D12.4 Benign neoplasm of descending colon; K21.9 Gastro-esophageal reflux disease without esophagitis; Z86.0100 Personal history of colon polyps, unspecified; I10 Essential (primary) hypertension; G47.33 Obstructive sleep apnea (adult) (pediatric); F41.9 Anxiety disorder, unspecified; F17.290 Nicotine dependence, other tobacco product, uncomplicated; Z79.899 Other long term (current) drug therapy; Z88.0 Allergy status to penicillin; Z88.5 Allergy status to narcotic agent
CPT/HCPCS: 45380; J0131; J1885; J2704; J3010; J7120; 00811; J3490